=== PATIENT | female | born 1960 | race Hispanic/Latino ===

== ENCOUNTER 2019-02-25 19:56 | Emergency (ER) | payer OTHER ==
[2019-02-25 20:52] LABS: APPEARANCE,URINE Clear (CLEAR); BILIRUBIN,URINE Negative (NEGATIVE); COLOR,URINE Yellow (YELLOW); GLUCOSE, URINE (UA) Negative (NEGATIVE); KETONES,URINE 15 mg/dL (NEGATIVE); LEUKOCYTE ESTERASE ,URINE Small (NEGATIVE); NITRATE,URINE Negative (NEGATIVE); OCCULT BLOOD,URINE Negative (NEGATIVE); PROTEIN,URINE Negative (NEGATIVE)
[2019-02-25 20:53] LABS: BASOPHILS % (AUTO) 0.9 % (0.0-5.0); EOSINOPHILS % (AUTO) 12.5 % (0.0-8.0); HEMATOCRIT 40.6 % (36-48); LYMPHOCYTES % (AUTO) 27.7 % (21.0-51.0); MEAN CORPUSCULAR HEMOGLOBIN 29.4 pg (27.0-33.0); MEAN CORPUSCULAR HGB CONC 34.7 g/dL (32.0-36.0); MEAN CORPUSCULAR VOLUME 84.7 fL (79-99); MONOCYTES % (AUTO) 6.8 % (3.0-13.0); NEUTROPHILS % (AUTO) 52.1 % (40.0-77.0); PLATELET COUNT (AUTO) 330 K/uL (130-400); RED CELL DISTRIBUTION WIDTH 12.7 % (11.0-15.5); WHITE BLOOD COUNT (AUTO) 6.4 K/uL (4.8-10.8)
[2019-02-25] MEDS ORDERED: SODIUM CHLORIDE 0.9% 1000ML 0 ML IV ONE (20:54)
[2019-02-25] MEDS ORDERED: ONDANSETRON HCL 4 MG/2 ML VIAL ONE ×2 (20:54→21:02)
[2019-02-25 20:58] LABS: BACTERIA,URINE Few /HPF (None Seen)
[2019-02-25] MEDS ORDERED: SODIUM CHLORIDE 0.9% 1000ML 1,000 ML IV ONE (21:02)
[2019-02-25 21:05] LABS: PARTIAL THROMBOPLASTIN TIME 24.5 SEC (26.3-35.5); PROTHROMBIN TIME 10.5 SEC (9.6-11.6)
[2019-02-25 21:06] LABS: ALBUMIN 4.1 g/dL (3.5-5.0); BILIRUBIN,TOTAL 0.7 mg/dL (0.2-1.0); CREATININE 0.6 mg/dL (0.5-1.5); TOTAL PROTEIN, SERUM 7.1 g/dL (6.0-8.3)
[2019-02-25] MEDS ORDERED: IOHEXOL-350 75 ML VIAL IV ONE (21:14)
[2019-02-25] MEDS ORDERED: POTASSIUM BICARB/CIT AC 25 MEQ TABLET.EFF ONE (22:20)
== END 2019-02-25 22:38 | disposition home or self-care (01) ==
LOC: EDH 19:56
DX: K52.9 Noninfective gastroenteritis and colitis, unspecified (principal); E11.9 Type 2 diabetes mellitus without complications; R79.1 Abnormal coagulation profile; Z88.0 Allergy status to penicillin; Z90.710 Acquired absence of both cervix and uterus
CPT/HCPCS: 36415; 74177; 80053; 81001; 83605; 83690; 84484; 85025; 85610; 85730; 87040; 93005; 96361; 96374; 99285; J2405; J7030; Q9967

== ENCOUNTER 2019-04-26 16:56 | Emergency (ER) | payer SELFPAY ==
[2019-04-26] MEDS ORDERED: HYDROCODONE/ACETAMINOPHEN 5/325 MG TAB ONE (17:46)
== END 2019-04-26 18:19 | disposition home or self-care (01) ==
LOC: EDH 16:56
DX: S80.02XA Contusion of left knee, initial encounter (principal); E11.9 Type 2 diabetes mellitus without complications; Z90.710 Acquired absence of both cervix and uterus; Z88.0 Allergy status to penicillin; W18.39XA Other fall on same level, initial encounter; Y93.89 Activity, other specified; Y92.009 Unspecified place in unspecified non-institutional (private) residence as the place of occurrence of the external cause; Y99.8 Other external cause status
CPT/HCPCS: 73562

== ENCOUNTER 2019-05-07 18:29 | Emergency (ER) | payer SELFPAY ==
[2019-05-07 18:59] LABS: BASOPHILS % (AUTO) 1.3 % (0.0-5.0); EOSINOPHILS % (AUTO) 6.5 % (0.0-8.0); HEMATOCRIT 34.8 % (36-48); LYMPHOCYTES % (AUTO) 22.7 % (21.0-51.0); MEAN CORPUSCULAR HEMOGLOBIN 29.5 pg (27.0-33.0); MEAN CORPUSCULAR HGB CONC 34.1 g/dL (32.0-36.0); MEAN CORPUSCULAR VOLUME 86.6 fL (79-99); MONOCYTES % (AUTO) 7.1 % (3.0-13.0); NEUTROPHILS % (AUTO) 62.4 % (40.0-77.0); PLATELET COUNT (AUTO) 339 K/uL (130-400); RED BLOOD CELL COUNT(AUTO) 4.02 MIL/uL (4.00-5.50); RED CELL DISTRIBUTION WIDTH 13.7 % (11.0-15.5); WHITE BLOOD COUNT (AUTO) 8.7 K/uL (4.8-10.8)
[2019-05-07 19:08] LABS: CREATININE 0.4 mg/dL (0.5-1.5); POTASSIUM 3.5 mmol/L (3.5-5.1)
[2019-05-07 19:13] LABS: ALBUMIN 3.3 g/dL (3.5-5.0); BILIRUBIN,TOTAL 0.3 mg/dL (0.2-1.0); TOTAL PROTEIN, SERUM 6.5 g/dL (6.0-8.3)
[2019-05-07 21:33] LABS: APPEARANCE,URINE Clear (CLEAR); BILIRUBIN,URINE Negative (NEGATIVE); COLOR,URINE Yellow (YELLOW); GLUCOSE, URINE (UA) Negative (NEGATIVE); KETONES,URINE Negative (NEGATIVE); LEUKOCYTE ESTERASE ,URINE Trace (NEGATIVE); NITRATE,URINE Negative (NEGATIVE); OCCULT BLOOD,URINE Negative (NEGATIVE); PH,URINE 5.5 (5.0-8.0); PROTEIN,URINE Negative (NEGATIVE); UROBILINOGEN,URINE 0.2 mg/dL (0.2-1.0)
[2019-05-07 21:47] LABS: BACTERIA,URINE Rare /HPF (None Seen); MUCUS,URINE None Seen LPF (None Seen); SQUAMOUS EPITHELIAL CELL,UR 0-2 /HPF (0-2)
== END 2019-05-07 22:38 | disposition home or self-care (01) ==
LOC: EDH 18:29
DX: M54.5 Low back pain (principal); K59.00 Constipation, unspecified; R06.00 Dyspnea, unspecified; E11.9 Type 2 diabetes mellitus without complications; Z88.0 Allergy status to penicillin; Z90.710 Acquired absence of both cervix and uterus
CPT/HCPCS: 36415; 71046; 80053; 81001; 83880; 84484; 85025; 93005

== ENCOUNTER 2019-06-22 19:49 | Emergency (ER) | payer OTHER ==
[2019-06-22] MEDS ORDERED: ONDANSETRON HCL 4 MG/2 ML VIAL ONE (20:44)
[2019-06-22] MEDS ORDERED: SODIUM CHLORIDE 0.9% 1000ML 1,000 ML IV ONE (20:44)
[2019-06-22 21:26] LABS: BASOPHILS % (AUTO) 0.6 % (0.0-5.0); EOSINOPHILS % (AUTO) 0.8 % (0.0-8.0); HEMATOCRIT 37.7 % (36-48); LYMPHOCYTES % (AUTO) 5.9 % (21.0-51.0); MEAN CORPUSCULAR HEMOGLOBIN 28.6 pg (27.0-33.0); MEAN CORPUSCULAR HGB CONC 32.6 g/dL (32.0-36.0); MEAN CORPUSCULAR VOLUME 87.7 fL (79-99); NEUTROPHILS % (AUTO) 88.3 % (40.0-77.0); PLATELET COUNT (AUTO) 371 K/uL (130-400); RED CELL DISTRIBUTION WIDTH 13.5 % (11.0-15.5); WHITE BLOOD COUNT (AUTO) 11.4 K/uL (4.8-10.8)
[2019-06-22 21:36] LABS: BILIRUBIN,TOTAL 0.4 mg/dL (0.2-1.0); CREATININE 0.6 mg/dL (0.5-1.5); POTASSIUM 3.6 mmol/L (3.5-5.1); TOTAL PROTEIN, SERUM 7.5 g/dL (6.0-8.3)
[2019-06-22 22:43] LABS: BILIRUBIN,URINE Negative (NEGATIVE); COLOR,URINE Yellow (YELLOW); GLUCOSE, URINE (UA) 500 mg/dL (NEGATIVE); KETONES,URINE Trace mg/dL (NEGATIVE); LEUKOCYTE ESTERASE ,URINE Negative (NEGATIVE); NITRATE,URINE Negative (NEGATIVE); OCCULT BLOOD,URINE Negative (NEGATIVE); PH,URINE 7.5 (5.0-8.0); PROTEIN,URINE Trace mg/dL (NEGATIVE); UROBILINOGEN,URINE 0.2 mg/dL (0.2-1.0)
[2019-06-22 23:00] LABS: APPEARANCE,URINE SLIGHTLY CLOUDY (CLEAR)
[2019-06-22 23:12] LABS: AMORPHOUS SEDIMENT,UR Few /LPF (None Seen); BACTERIA,URINE Few /HPF (None Seen); RBC,URINE 0-1 /HPF (0-1); SQUAMOUS EPITHELIAL CELL,UR 0-2 /HPF (0-2)
== END 2019-06-22 22:56 | disposition home or self-care (01) ==
LOC: EDH 19:49
DX: R11.2 Nausea with vomiting, unspecified (principal); R19.7 Diarrhea, unspecified; R10.9 Unspecified abdominal pain; E11.9 Type 2 diabetes mellitus without complications; Z90.710 Acquired absence of both cervix and uterus; Z72.0 Tobacco use; Z88.0 Allergy status to penicillin
CPT/HCPCS: 36415; 80053; 81001; 85025; 87804 ×2; 96361; 96374; 99285; J2405; J7030

== ENCOUNTER 2019-07-02 12:57 | Inpatient (IN) | payer SELFPAY ==
[~2019-07-02] VITALS: Ht 149.9 cm; Wt 35.8 kg
[2019-07-02] MEDS ORDERED: MORPHINE SULFATE 4 MG/1ML SYG ONE (13:21)
[2019-07-02] MEDS ORDERED: ONDANSETRON HCL 4 MG/2 ML VIAL ONE (13:21)
[2019-07-02 13:35] LABS: BASOPHILS % (AUTO) 0.5 % (0.0-5.0); EOSINOPHILS % (AUTO) 0.9 % (0.0-8.0); HEMATOCRIT 38.6 % (36-48); LYMPHOCYTES % (AUTO) 15.1 % (21.0-51.0); MEAN CORPUSCULAR HEMOGLOBIN 28.5 pg (27.0-33.0); MEAN CORPUSCULAR HGB CONC 32.6 g/dL (32.0-36.0); MEAN CORPUSCULAR VOLUME 87.3 fL (79-99); MONOCYTES % (AUTO) 7.2 % (3.0-13.0); PLATELET COUNT (AUTO) 317 K/uL (130-400); RED BLOOD CELL COUNT(AUTO) 4.42 MIL/uL (4.00-5.50); RED CELL DISTRIBUTION WIDTH 13.3 % (11.0-15.5)
[2019-07-02 13:43] LABS: CREATININE 0.5 mg/dL (0.5-1.5); POTASSIUM 3.6 mmol/L (3.5-5.1)
[2019-07-02 13:45] LABS: INR 0.95 (0.85-1.15); PARTIAL THROMBOPLASTIN TIME 23.1 SEC (26.3-35.5)
[2019-07-02 13:48] LABS: ALBUMIN 3.8 g/dL (3.5-5.0); BILIRUBIN,TOTAL 0.6 mg/dL (0.2-1.0); TOTAL PROTEIN, SERUM 7.2 g/dL (6.0-8.3)
[2019-07-02] MEDS ORDERED: ONDANSETRON HCL 4 MG/2 ML VIAL IV PRN (15:15)
[2019-07-02] MEDS ORDERED: ACETAMINOPHEN 325 MG TAB PO PRN (15:15)
[2019-07-02] MEDS: INSULIN HUMULIN R 100 UNIT/ML 3ML SQ SCH ×2 (16:30→21:00)
[2019-07-02 17:40] VITALS: BP 88/44
[2019-07-02 20:00] VITALS: BP 107/51
[2019-07-02] MEDS ORDERED: FAMOTIDINE/PF 20 MG/2 ML VIAL IV SCH (21:00)
[2019-07-02] MEDS: FAMOTIDINE 20MG TAB 20 MG TAB PO SCH (21:50)
[2019-07-02] MEDS: HYDROCODONE/ACETAMINOPHEN 5/325 MG TAB PO PRN (21:54)
[2019-07-03 00:04] VITALS: BP 85/53
[2019-07-03 04:12] VITALS: BP 91/53
[2019-07-03] MEDS: INSULIN HUMULIN R 100 UNIT/ML 3ML SQ SCH ×4 (05:29→19:45)
[2019-07-03 05:47] LABS: BASOPHILS % (AUTO) 1.1 % (0.0-5.0); EOSINOPHILS % (AUTO) 2.6 % (0.0-8.0); HEMATOCRIT 32.6 % (36-48); LYMPHOCYTES % (AUTO) 26.4 % (21.0-51.0); MEAN CORPUSCULAR HEMOGLOBIN 28.3 pg (27.0-33.0); MEAN CORPUSCULAR HGB CONC 32.2 g/dL (32.0-36.0); MEAN CORPUSCULAR VOLUME 87.9 fL (79-99); MONOCYTES % (AUTO) 8.6 % (3.0-13.0); NEUTROPHILS % (AUTO) 60.9 % (40.0-77.0); PLATELET COUNT (AUTO) 256 K/uL (130-400); RED BLOOD CELL COUNT(AUTO) 3.71 MIL/uL (4.00-5.50); RED CELL DISTRIBUTION WIDTH 13.3 % (11.0-15.5); WHITE BLOOD COUNT (AUTO) 5.4 K/uL (4.8-10.8)
[2019-07-03 05:59] LABS: CREATININE 0.5 mg/dL (0.5-1.5)
[2019-07-03 07:41] VITALS: BP 117/69
[2019-07-03] MEDS: FAMOTIDINE 20MG TAB 20 MG TAB PO SCH ×2 (10:03→19:46)
[2019-07-03] MEDS: ENOXAPARIN SODIUM 30 MG/0.3 ML SQ SCH (10:03)
[2019-07-03] MEDS: HYDROCODONE/ACETAMINOPHEN 5/325 MG TAB PO PRN ×3 (10:05→22:15)
[2019-07-03 11:00] VITALS: BP 112/65
--- NOTE | 2019-07-03 15:03 | NUR ---
INITIAL AT THE NURSING STATION THE PT WAS STATING THE PT IS VERY UNSAFE ON HER FEET. DOES NOT WANT TO LEARN HOW TO MOVE OR ANY OTHER KIND OF BODY MECHANICS CONFIRMED RE DISCHARGED PLANNING WITH PT, MALLORY FREEMAN, BROTHER IS VERY SUPPORTIVE, GAVE PT WHEELCHAIR AND WALKER, STATES SHE WILL NOT BE ALONE, SHE WILL HAVE [employer] TO HELP HER. WANTED LEAVE THIS EVENING, STATES WILL STAY UNTIL TOMORROW Addendum: 07/03/19 at 1507 by GUMARO DE LOS SANTOS RN CM Amended: Links added. Addendum: 07/04/19 at 0854 by GUMARO DE LOS SANTOS RN CM AT THE NURSING STATION THE PHYICAL THERAPIST WAS STATS THE PATIETN WAS VERY UNSTADY ON HER FEET
[2019-07-03 16:00] VITALS: BP 100/58
--- NOTE | 2019-07-03 16:50 | NUR ---
Nutrition intervention: Nutrition notification for low BMI 15.9. Pt admitted for nondisplacement fracture. She is currently on heart healthy diet with reported intake of 100%, as per EMR. However pt states she cannot eat large amount of foods and will have emesis episodes "every day or every other day". Since the gastroenteritis dx pt states her weight has dropped all the way down to 67lbs and is currently attempting to regain. Pt also states she is able to hold liquids a little better than solids, nutrition supplementation offered, although hesitant pt agreed to once daily. Recommendation: Continue current diet therapy. Begin nutrition supplementation once daily-if tolerated will increase to BID. Monitor I/O. Consult RD as nutrition concern arise. Addendum: 07/03/19 at [address] RD Amended: Links added.
[2019-07-03 19:00] VITALS: BP 99/55
[2019-07-04] VITALS: BP 93/53
[2019-07-04 04:00] VITALS: BP 103/66
[2019-07-04 05:03] LABS: BASOPHILS % (AUTO) 1.2 % (0.0-5.0); EOSINOPHILS % (AUTO) 2.9 % (0.0-8.0); HEMATOCRIT 32.4 % (36-48); LYMPHOCYTES % (AUTO) 29.6 % (21.0-51.0); MEAN CORPUSCULAR HEMOGLOBIN 28.6 pg (27.0-33.0); MEAN CORPUSCULAR HGB CONC 32.7 g/dL (32.0-36.0); MEAN CORPUSCULAR VOLUME 87.6 fL (79-99); MONOCYTES % (AUTO) 8.2 % (3.0-13.0); NEUTROPHILS % (AUTO) 57.8 % (40.0-77.0); PLATELET COUNT (AUTO) 261 K/uL (130-400); RED CELL DISTRIBUTION WIDTH 13.2 % (11.0-15.5); WHITE BLOOD COUNT (AUTO) 5.9 K/uL (4.8-10.8)
[2019-07-04 05:13] LABS: CREATININE 0.4 mg/dL (0.5-1.5); POTASSIUM 3.8 mmol/L (3.5-5.1)
[2019-07-04] MEDS: INSULIN HUMULIN R 100 UNIT/ML 3ML SQ SCH ×2 (06:07→11:30)
[2019-07-04 08:00] VITALS: BP 111/67
[2019-07-04] MEDS: HYDROCODONE/ACETAMINOPHEN 5/325 MG TAB PO PRN (09:05)
[2019-07-04] MEDS: ENOXAPARIN SODIUM 30 MG/0.3 ML SQ SCH (09:06)
[2019-07-04] MEDS: FAMOTIDINE 20MG TAB 20 MG TAB PO SCH (09:09)
[2019-07-04 11:00] VITALS: BP 109/54
[2019-07-04] MEDS ORDERED: HYDR-4060 PO (12:48)
--- NOTE | 2019-07-04 14:48 | NUR ---
PATIENT STATES SHE IS CURRENTLY ON UNEMPLOYEMENT INSURANCE AND HAS TO SUBMIT THAT SHE IS READY TO WOR - WILL SUBMIT 3 JOB SEARCHED THIS WEEK TO CONTINUE TO GET HER BENEFITS- IS WORRIED'THEY WILL FIND OUT THAT I WAS IN THE HOSPITAL
--- NOTE | 2019-07-04 15:30 | NUR ---
DISCHARGE DISCHARGE TEACHING PROVIDED TO PATIENT REGARDING RX (NORCO), SCHEDULED F/U APPT WITH DR. GALEAS, HOME CARE, CONTINUE AMBULATION WBAT INSTRUCTED BY PHYSICAL THERAPY. PATIENT STATES THAT SHE HAS WALKER AND WHEELCHAIR AT HOME AND HER BOYFRIEND AND BROTHER TO HELP HER AT HOME. PROVIDED TEACHING REGARDING HOME SAFETY MEASURE TO PREVENT FALLS. STRESSED THE IMPORTANCE OF MAKING SURE PATIENT HAS SOMEONE TO HELP HER AT HOME BECAUSE PATIENT REQUIRES WITH AMBULATION AND TRANSFERS. PATIENT VERBALIZED UNDERSTANDING OF DISCHARGE TEACHING. REMOVED 20G IV FROM RIGHT FA, CATHETER TIP INTACT. AWAITING PATIENTS FAMILY TO PICK HER UP.
== END 2019-07-04 15:47 | disposition home or self-care (01) | DRG 535 ==
LOC: EDH 12:57 → EDHIP 12:58 → 4AH 17:25
PROVIDERS: ADMIT Family Medicine; ATTEND Family Medicine
DX: S32.511A Fracture of superior rim of right pubis, initial encounter for closed fracture (principal); E43 Unspecified severe protein-calorie malnutrition; Z68.1 Body mass index [BMI] 19.9 or less, adult; S32.591A Other specified fracture of right pubis, initial encounter for closed fracture; I10 Essential (primary) hypertension; E11.9 Type 2 diabetes mellitus without complications; F17.210 Nicotine dependence, cigarettes, uncomplicated; J45.909 Unspecified asthma, uncomplicated; W01.0XXA Fall on same level from slipping, tripping and stumbling without subsequent striking against object, initial encounter; Y93.89 Activity, other specified; Y99.8 Other external cause status; Y92.009 Unspecified place in unspecified non-institutional (private) residence as the place of occurrence of the external cause; Z86.711 Personal history of pulmonary embolism; Z90.710 Acquired absence of both cervix and uterus; Z95.828 Presence of other vascular implants and grafts; Z88.0 Allergy status to penicillin
CPT/HCPCS: 36415; 71045; 73502; 80048; 80053; 82948; 85025; 85610; 85730; 97039; G0378; J1650; J1815; J2270; J2405

== ENCOUNTER 2019-11-11 18:48 | Emergency (ER) | payer OTHER ==
[~2019-11-11 18:48] MED LIST: HYDR-4060 PO
[2019-11-11] MEDS ORDERED: ONDANSETRON HCL 4 MG/2 ML VIAL ONE (19:16)
[2019-11-11 19:57] LABS: BASOPHILS % (AUTO) 0.8 % (0.0-5.0); EOSINOPHILS % (AUTO) 0.6 % (0.0-8.0); HEMATOCRIT 42.1 % (36-48); LYMPHOCYTES % (AUTO) 9.8 % (21.0-51.0); MEAN CORPUSCULAR HEMOGLOBIN 28.4 pg (27.0-33.0); MEAN CORPUSCULAR VOLUME 85.9 fL (79-99); MONOCYTES % (AUTO) 2.4 % (3.0-13.0); PLATELET COUNT (AUTO) 343 K/uL (130-400); RED CELL DISTRIBUTION WIDTH 12.9 % (11.0-15.5); WHITE BLOOD COUNT (AUTO) 11.9 K/uL (4.8-10.8)
[2019-11-11 20:00] LABS: ABG OXYGEN SATURATION 52.5 % (95.0-99.0); BASE EXCESS,VENOUS BLOOD GAS -1.7 (-2.0-3.0); HCO3,VENOUS BLOOD GAS 24.9 (21.0-28.0); PCO2,VENOUS BLOOD GAS 49 (32-45); PH,VENOUS BLOOD GAS 7.322 (7.350-7.450)
[2019-11-11 20:03] LABS: APPEARANCE,URINE Cloudy (CLEAR); BILIRUBIN,URINE Negative (NEGATIVE); COLOR,URINE Yellow (YELLOW); GLUCOSE, URINE (UA) 500 mg/dL (NEGATIVE); KETONES,URINE Trace mg/dL (NEGATIVE); LEUKOCYTE ESTERASE ,URINE Negative (NEGATIVE); NITRATE,URINE Negative (NEGATIVE); OCCULT BLOOD,URINE Negative (NEGATIVE); PROTEIN,URINE POS 2+ mg/dL (NEGATIVE); UROBILINOGEN,URINE 0.2 mg/dL (0.2-1.0)
[2019-11-11 20:19] LABS: AMORPHOUS SEDIMENT,UR Few /LPF (None Seen); BACTERIA,URINE Few /HPF (None Seen); RBC,URINE None Seen /HPF (0-1); WBC,URINE 0-1 /HPF (0-1)
[2019-11-11 20:24] LABS: CREATININE 0.5 mg/dL (0.5-1.5); POTASSIUM 3.5 mmol/L (3.5-5.1)
== END 2019-11-11 21:24 | disposition home or self-care (01) ==
LOC: EDH 18:48
DX: E11.65 Type 2 diabetes mellitus with hyperglycemia (principal); R11.10 Vomiting, unspecified; M19.90 Unspecified osteoarthritis, unspecified site; Z72.0 Tobacco use; Z90.710 Acquired absence of both cervix and uterus; Z88.0 Allergy status to penicillin
CPT/HCPCS: 36415; 36600; 80048; 81001; 82010; 82803; 82948; 85025; 93005; 96374; 99284; J2405

== ENCOUNTER 2019-11-14 18:50 | Emergency (ER) | payer OTHER ==
[2019-11-14] MEDS ORDERED: ONDANSETRON HCL 4 MG/2 ML VIAL ONE (19:43)
[2019-11-14 19:57] LABS: BASOPHILS % (AUTO) 0.5 % (0.0-5.0); EOSINOPHILS % (AUTO) 0.7 % (0.0-8.0); HEMATOCRIT 43.2 % (36-48); LYMPHOCYTES % (AUTO) 19.6 % (21.0-51.0); MEAN CORPUSCULAR HEMOGLOBIN 27.9 pg (27.0-33.0); MEAN CORPUSCULAR HGB CONC 33.6 g/dL (32.0-36.0); MEAN CORPUSCULAR VOLUME 83.1 fL (79-99); NEUTROPHILS % (AUTO) 71.9 % (40.0-77.0); PLATELET COUNT (AUTO) 329 K/uL (130-400); RED CELL DISTRIBUTION WIDTH 12.3 % (11.0-15.5); WHITE BLOOD COUNT (AUTO) 7.7 K/uL (4.8-10.8)
[2019-11-14 20:02] LABS: CREATININE 0.7 mg/dL (0.5-1.5); POTASSIUM 3.4 mmol/L (3.5-5.1)
[2019-11-14 20:07] LABS: ALBUMIN 4.4 g/dL (3.5-5.0); BILIRUBIN,TOTAL 0.9 mg/dL (0.2-1.0); TOTAL PROTEIN, SERUM 7.7 g/dL (6.0-8.3)
[2019-11-14 20:36] LABS: APPEARANCE,URINE Clear (CLEAR); BILIRUBIN,URINE Negative (NEGATIVE); COLOR,URINE Dark Yellow (YELLOW); GLUCOSE, URINE (UA) Negative (NEGATIVE); KETONES,URINE 15 mg/dL (NEGATIVE); LEUKOCYTE ESTERASE ,URINE Small (NEGATIVE); NITRATE,URINE Negative (NEGATIVE); OCCULT BLOOD,URINE Negative (NEGATIVE); PH,URINE 5.5 (5.0-8.0); PROTEIN,URINE POS 1+ mg/dL (NEGATIVE)
[2019-11-14 20:44] LABS: AMPHET/METH SCREEN,URINE NEGATIVE (NEGATIVE); BARBITURATE SCREEN, URINE NEGATIVE (NEGATIVE); BENZODIAZEPINES SCREEN,URINE NEGATIVE (NEGATIVE); CANNABINOID SCREEN,URINE NEGATIVE (NEGATIVE); COCAINE SCREEN,URINE NEGATIVE (NEGATIVE); OPIATE SCREEN,URINE NEGATIVE (NEGATIVE); PHENCYCLIDINE SCREEN,URINE NEGATIVE (NEGATIVE)
[2019-11-14 20:49] LABS: RBC,URINE 0-1 /HPF (0-1)
[2019-11-14 20:50] LABS: BACTERIA,URINE Rare /HPF (None Seen); MUCUS,URINE Rare LPF (None Seen); SQUAMOUS EPITHELIAL CELL,UR Few /HPF (0-2)
[2019-11-14] MEDS ORDERED: METOCLOPRAMIDE 10 MG TABLET ONE (21:38)
== END 2019-11-14 22:00 | disposition home or self-care (01) ==
LOC: EDH 18:50
DX: E11.65 Type 2 diabetes mellitus with hyperglycemia (principal); R11.10 Vomiting, unspecified; M19.90 Unspecified osteoarthritis, unspecified site; Z90.710 Acquired absence of both cervix and uterus; Z72.0 Tobacco use; Z88.0 Allergy status to penicillin
CPT/HCPCS: 36415; 80053; 80305; 81001; 82010; 85025; 93005; 96361; 96374; 99284; J2405

== ENCOUNTER 2019-11-27 11:42 | Emergency (ER) | payer OTHER ==
[2019-11-27] MEDS ORDERED: SODIUM CHLORIDE 0.9% 1000ML 1,000 ML IV ONE (11:43)
[2019-11-27 12:10] LABS: BASOPHILS % (AUTO) 0.9 % (0.0-5.0); HEMATOCRIT 44.3 % (36-48); MEAN CORPUSCULAR HEMOGLOBIN 28.1 pg (27.0-33.0); MEAN CORPUSCULAR HGB CONC 33.9 g/dL (32.0-36.0); MEAN CORPUSCULAR VOLUME 83.1 fL (79-99); MONOCYTES % (AUTO) 6.1 % (3.0-13.0); NEUTROPHILS % (AUTO) 68.8 % (40.0-77.0); PLATELET COUNT (AUTO) 310 K/uL (130-400); RED BLOOD CELL COUNT(AUTO) 5.33 MIL/uL (4.00-5.50); RED CELL DISTRIBUTION WIDTH 11.9 % (11.0-15.5); WHITE BLOOD COUNT (AUTO) 8.2 K/uL (4.8-10.8)
[2019-11-27] MEDS ORDERED: ONDANSETRON HCL 4 MG/2 ML VIAL ONE (12:26)
[2019-11-27 12:32] LABS: ALBUMIN 4.6 g/dL (3.5-5.0); BILIRUBIN,TOTAL 0.5 mg/dL (0.2-1.0); CREATININE 0.7 mg/dL (0.5-1.5)
[2019-11-27 12:33] LABS: POTASSIUM 2.8 mmol/L (3.5-5.1)
[2019-11-27] MEDS ORDERED: POTASSIUM BICARB/CIT AC 25 MEQ TABLET.EFF ONE (13:01)
[2019-11-27] MEDS ORDERED: MAGNESIUM 2GM PREMIX 50ML 50 ML IV ONE (13:58)
[2019-11-27] MEDS ORDERED: POTASSIUM CHLORIDE 20 MEQ ERTAB PO ONE (14:21)
[2019-11-27 14:33] LABS: APPEARANCE,URINE Clear (CLEAR); BILIRUBIN,URINE Negative (NEGATIVE); COLOR,URINE Dark Yellow (YELLOW); GLUCOSE, URINE (UA) Negative (NEGATIVE); KETONES,URINE Trace mg/dL (NEGATIVE); LEUKOCYTE ESTERASE ,URINE Small (NEGATIVE); NITRATE,URINE Negative (NEGATIVE); OCCULT BLOOD,URINE Negative (NEGATIVE); PROTEIN,URINE POS 1+ mg/dL (NEGATIVE)
[2019-11-27 14:56] LABS: RBC,URINE None Seen /HPF (0-1)
[2019-11-27 14:57] LABS: BACTERIA,URINE Few /HPF (None Seen); MUCUS,URINE Many LPF (None Seen)
== END 2019-11-27 15:42 | disposition home or self-care (01) ==
LOC: EDH 11:42
DX: R11.2 Nausea with vomiting, unspecified (principal); E11.9 Type 2 diabetes mellitus without complications; E87.6 Hypokalemia; M19.90 Unspecified osteoarthritis, unspecified site; Z90.710 Acquired absence of both cervix and uterus; Z88.0 Allergy status to penicillin
CPT/HCPCS: 36415; 80053; 81001; 82948; 83735; 85025; 93005; 96361; 96365; 96366; 96375; 99284; J2405; J3475; J7030

== ENCOUNTER 2020-03-18 11:11 | Emergency (ER) | payer SELFPAY ==
[2020-03-18] MEDS ORDERED: ONDANSETRON ODT 4 MG TAB ONE (11:44)
[2020-03-18 11:55] LABS: CREATININE 0.6 mg/dL (0.5-1.5)
[2020-03-18 11:59] LABS: ALBUMIN 4.2 g/dL (3.5-5.0); BILIRUBIN,TOTAL 0.4 mg/dL (0.2-1.0); TOTAL PROTEIN, SERUM 7.7 g/dL (6.0-8.3)
[2020-03-18 12:01] LABS: BASOPHILS % (AUTO) 1.2 % (0.0-5.0); EOSINOPHILS % (AUTO) 1.9 % (0.0-8.0); HEMATOCRIT 41.8 % (36-48); LYMPHOCYTES % (AUTO) 25.4 % (21.0-51.0); MEAN CORPUSCULAR HEMOGLOBIN 27.9 pg (27.0-33.0); MEAN CORPUSCULAR VOLUME 84.6 fL (79-99); MONOCYTES % (AUTO) 5.2 % (3.0-13.0); NEUTROPHILS % (AUTO) 66.2 % (40.0-77.0); PLATELET COUNT (AUTO) 402 K/uL (130-400); RED BLOOD CELL COUNT(AUTO) 4.94 MIL/uL (4.00-5.50); RED CELL DISTRIBUTION WIDTH 13.1 % (11.0-15.5); WHITE BLOOD COUNT (AUTO) 6.7 K/uL (4.8-10.8)
[2020-03-18 12:21] LABS: INR 0.9 (0.85-1.15); PARTIAL THROMBOPLASTIN TIME 26.5 SEC (26.3-35.5); PROTHROMBIN TIME 9.8 SEC (9.6-11.6)
[2020-03-18 12:50] LABS: APPEARANCE,URINE Clear (CLEAR); BILIRUBIN,URINE Negative (NEGATIVE); COLOR,URINE Yellow (YELLOW); GLUCOSE, URINE (UA) Negative (NEGATIVE); KETONES,URINE Negative (NEGATIVE); LEUKOCYTE ESTERASE ,URINE Small (NEGATIVE); NITRATE,URINE Negative (NEGATIVE); OCCULT BLOOD,URINE Negative (NEGATIVE); PROTEIN,URINE Trace mg/dL (NEGATIVE)
[2020-03-18 12:59] LABS: AMPHET/METH SCREEN,URINE NEGATIVE (NEGATIVE); BARBITURATE SCREEN, URINE NEGATIVE (NEGATIVE); BENZODIAZEPINES SCREEN,URINE NEGATIVE (NEGATIVE); CANNABINOID SCREEN,URINE NEGATIVE (NEGATIVE); COCAINE SCREEN,URINE NEGATIVE (NEGATIVE); OPIATE SCREEN,URINE NEGATIVE (NEGATIVE); PHENCYCLIDINE SCREEN,URINE NEGATIVE (NEGATIVE)
[2020-03-18 13:12] LABS: BACTERIA,URINE Few /HPF (None Seen); MUCUS,URINE Many LPF (None Seen); RBC,URINE 0-1 /HPF (0-1)
== END 2020-03-18 14:15 | disposition home or self-care (01) ==
LOC: EDH 11:11
DX: K59.00 Constipation, unspecified (principal); R11.2 Nausea with vomiting, unspecified; E11.9 Type 2 diabetes mellitus without complications; M19.90 Unspecified osteoarthritis, unspecified site; Z90.710 Acquired absence of both cervix and uterus; Z87.891 Personal history of nicotine dependence; Z88.0 Allergy status to penicillin
CPT/HCPCS: 36415; 71045; 74176; 80053; 80305; 81001; 82550; 82948; 83690; 84443; 84484; 85025; 85610; 85730; 93005

== ENCOUNTER 2020-11-02 18:50 | Emergency (ER) | payer OTHER ==
[2020-11-02] MEDS ORDERED: ACETAMINOPHEN EXTRA STRENGTH 500 MG TABLET ONE (19:20)
[2020-11-02] MEDS ORDERED: CYCLOBENZAPRINE HCL 10 MG TABLET ONE (20:31)
== END 2020-11-02 21:17 | disposition home or self-care (01) ==
LOC: EDH 18:50
DX: S70.12XA Contusion of left thigh, initial encounter (principal); E11.9 Type 2 diabetes mellitus without complications; M79.7 Fibromyalgia; M19.90 Unspecified osteoarthritis, unspecified site; Z88.0 Allergy status to penicillin; X58.XXXA Exposure to other specified factors, initial encounter; Y93.89 Activity, other specified; Y92.89 Other specified places as the place of occurrence of the external cause; Y99.8 Other external cause status
CPT/HCPCS: 73552; 96372; J1885

== ENCOUNTER 2020-12-13 17:21 | Emergency (ER) | payer SELFPAY ==
[~2020-12-13] VITALS: Ht 149.9 cm; Wt 40.8 kg
[2020-12-13 17:29] VITALS: BP 104/65
[2020-12-13 17:34] VITALS: BP 108/60
[2020-12-13] MEDS ORDERED: KETOROLAC 30MG VIAL (30MG/ML) IM ONE (19:30)
[2020-12-13] MEDS ORDERED: IBUPROFEN 600 MG TABLET ONE (20:20)
[2020-12-13 20:37] VITALS: BP 108/60
[2020-12-13] MEDS ORDERED: IBUP-2076 PO (21:37)
== END 2020-12-13 21:52 | disposition home or self-care (01) ==
LOC: EDH 17:21
DX: S20.212A Contusion of left front wall of thorax, initial encounter (principal); Z79.1 Long term (current) use of non-steroidal anti-inflammatories (NSAID); Z88.0 Allergy status to penicillin; W22.8XXA Striking against or struck by other objects, initial encounter; Y93.89 Activity, other specified; Y92.89 Other specified places as the place of occurrence of the external cause; Y99.8 Other external cause status
CPT/HCPCS: 71101; 99283; J1885

== ENCOUNTER 2021-05-14 22:45 | Emergency (ER) | payer OTHER ==
[~2021-05-14] VITALS: Ht 149.9 cm; Wt 45.4 kg
[~2021-05-14 22:45] MED LIST changes: +IBUP-2076 PO
[2021-05-14] MEDS ORDERED: CEPHALEXIN 500 MG CAPSULE PO ONE (23:00)
[2021-05-14] MEDS ORDERED: ACETAMINOPHEN 500 MG TABLET PO ONE (23:00)
[2021-05-14] MEDS ORDERED: CEPH500B PO (23:05)
[2021-05-14] MEDS ORDERED: ACET-2247 PO (23:05)
[2021-05-14 23:08] VITALS: BP 106/70
[2021-05-14] MEDS ORDERED: PHARMACY COMMUNICATION MISC SCH (23:30)
== END 2021-05-14 23:52 | disposition home or self-care (01) ==
LOC: EDH 22:45
DX: L03.011 Cellulitis of right finger (principal); Z88.0 Allergy status to penicillin; Z79.1 Long term (current) use of non-steroidal anti-inflammatories (NSAID)

== ENCOUNTER 2022-03-06 13:11 | Emergency (ER) | payer MEDICAID ==
[~2022-03-06] VITALS: Ht 149.9 cm; Wt 42.2 kg
[~2022-03-06 13:11] MED LIST changes: +ACET-2247 PO; +CEPH500B PO; +PANT40TA55 PO
[2022-03-06 13:15] VITALS: BP 121/83
[2022-03-06] MEDS ORDERED: 0.9%NACL 1000ML 1,000 ML IV ONE (14:00)
[2022-03-06 14:11] LABS: BASOPHILS % (AUTO) 0.6 % (0.0-5.0); EOSINOPHILS % (AUTO) 0.9 % (0.0-8.0); LYMPHOCYTES % (AUTO) 16.7 % (21.0-51.0); MEAN CORPUSCULAR HEMOGLOBIN 27.7 pg (27.0-33.0); MEAN CORPUSCULAR HGB CONC 33.1 g/dL (32.0-36.0); MEAN CORPUSCULAR VOLUME 83.9 fL (79-99); MONOCYTES % (AUTO) 5.5 % (3.0-13.0); NEUTROPHILS % (AUTO) 76.1 % (40.0-77.0); PLATELET COUNT (AUTO) 357 K/uL (130-400); RED BLOOD CELL COUNT(AUTO) 4.65 MIL/uL (4.00-5.50); RED CELL DISTRIBUTION WIDTH 13.2 % (11.0-15.5); WHITE BLOOD COUNT (AUTO) 8.1 K/uL (4.8-10.8)
[2022-03-06 14:27] LABS: ALBUMIN 3.6 g/dL (3.5-5.0); CREATININE 0.5 mg/dL (0.5-1.5); TOTAL PROTEIN, SERUM 7.1 g/dL (6.0-8.3)
[2022-03-06] MEDS ORDERED: ONDANSETRON ODT 4MG TAB SL ONE (14:30)
[2022-03-06] MEDS ORDERED: POTASSIUM BICARB/CIT AC 25 MEQ TABLET.EFF PO STA (14:50)
[2022-03-06 16:05] LABS: APPEARANCE,URINE CLEAR (CLEAR); BILIRUBIN,URINE NEGATIVE (NEGATIVE); COLOR,URINE YELLOW (YELLOW); GLUCOSE, URINE (UA) 500 mg/dL (NEGATIVE); KETONES,URINE >=80 mg/dL (NEGATIVE); LEUKOCYTE ESTERASE ,URINE NEGATIVE (NEGATIVE); NITRATE,URINE POSITIVE (NEGATIVE); OCCULT BLOOD,URINE NEGATIVE (NEGATIVE); PROTEIN,URINE 30 mg/dL (NEGATIVE); UROBILINOGEN,URINE 0.2 mg/dL (0.2-1.0)
[2022-03-06 16:08] LABS: AMPHET/METH SCREEN,URINE NEGATIVE (NEGATIVE); BARBITURATE SCREEN, URINE NEGATIVE (NEGATIVE); BENZODIAZEPINES SCREEN,URINE NEGATIVE (NEGATIVE); CANNABINOID SCREEN,URINE NEGATIVE (NEGATIVE); COCAINE SCREEN,URINE NEGATIVE (NEGATIVE); PHENCYCLIDINE SCREEN,URINE NEGATIVE (NEGATIVE)
[2022-03-06 16:25] LABS: BACTERIA,URINE Many /HPF (None Seen); RBC,URINE 0-1 /HPF (0-1); SQUAMOUS EPITHELIAL CELL,UR Few /HPF (0-2)
[2022-03-06] MEDS ORDERED: PANT40TA55 PO (16:28)
== END 2022-03-06 16:46 | disposition home or self-care (01) ==
LOC: EDH 13:11
DX: K52.9 Noninfective gastroenteritis and colitis, unspecified (principal); K21.9 Gastro-esophageal reflux disease without esophagitis; E11.9 Type 2 diabetes mellitus without complications; M19.90 Unspecified osteoarthritis, unspecified site; M79.7 Fibromyalgia; M81.0 Age-related osteoporosis without current pathological fracture; Z79.1 Long term (current) use of non-steroidal anti-inflammatories (NSAID); Z88.0 Allergy status to penicillin
CPT/HCPCS: 36415; 80053; 80305; 81001; 84484; 85025; 87077; 87088; 87186; 93005

== ENCOUNTER 2022-05-22 17:17 | Emergency (ER) | payer MEDICAID ==
[~2022-05-22 17:17] MED LIST changes: -ACET-2247 PO; +AMLO5TAB4 PO; +CANA300T PO; -CEPH500B PO; -HYDR-4060 PO; -IBUP-2076 PO; +LEVO-70 PO; +LISI10TA24 PO; +METF-446 PO; -PANT40TA55 PO; +SITA100T12 PO
[2022-05-22 18:01] LABS: BASOPHILS % (AUTO) 0.3 % (0.0-5.0); EOSINOPHILS % (AUTO) 0.2 % (0.0-8.0); HEMATOCRIT 44.8 % (36-48); LYMPHOCYTES % (AUTO) 9.2 % (21.0-51.0); MEAN CORPUSCULAR HEMOGLOBIN 29.2 pg (27.0-33.0); MEAN CORPUSCULAR HGB CONC 33.3 g/dL (32.0-36.0); MEAN CORPUSCULAR VOLUME 87.8 fL (79-99); MONOCYTES % (AUTO) 4.8 % (3.0-13.0); NEUTROPHILS % (AUTO) 85.2 % (40.0-77.0); PLATELET COUNT (AUTO) 348 K/uL (130-400); RED CELL DISTRIBUTION WIDTH 13.9 % (11.0-15.5); WHITE BLOOD COUNT (AUTO) 13.3 K/uL (4.8-10.8)
[2022-05-22 18:20] LABS: CREATININE 0.7 mg/dL (0.5-1.5); POTASSIUM 3.8 mmol/L (3.5-5.1)
[2022-05-22 18:25] LABS: ALBUMIN 3.7 g/dL (3.5-5.0); TOTAL PROTEIN, SERUM 7.5 g/dL (6.0-8.3)
[2022-05-22 18:26] LABS: ABG BASE EXCESS 2.6 mmol/L (-2.0-3.0); ABG HCO3 25.1 mmol/L (21.0-28.0); ABG OXYGEN SATURATION 95.7 % (95.0-99.0); ABG PCO2 33 mmHg (32-45)
[2022-05-22] MEDS ORDERED: INSULIN HUMULIN R 100 UNIT/ML 3ML SQ ONE (20:00)
[2022-05-22] MEDS ORDERED: 0.9%NACL 1000ML 2,000 ML IV ONE (20:00)
[2022-05-22] MEDS ORDERED: INSULIN HUMULIN R 100 UNIT/ML 3ML ONE (20:08)
[2022-05-22 21:58] VITALS: BP 135/72
== END 2022-05-22 22:42 | disposition home or self-care (01) ==
LOC: EDH 17:17
DX: E11.65 Type 2 diabetes mellitus with hyperglycemia (principal); E86.9 Volume depletion, unspecified; E11.9 Type 2 diabetes mellitus without complications; M19.90 Unspecified osteoarthritis, unspecified site; Z88.0 Allergy status to penicillin; Z79.84 Long term (current) use of oral hypoglycemic drugs; Z79.1 Long term (current) use of non-steroidal anti-inflammatories (NSAID)
CPT/HCPCS: 99284; 96360; 96361; 84484; 80053; 82803; 85025; 82948; 82010; 36415; 93005; 36600; 96372; J1815; J7030 ×2